=== PATIENT | male | born 1975 | race Asian ===

== ENCOUNTER 2022-05-05 19:50 | Emergency (ER) | payer SELFPAY ==
[~2022-05-05] VITALS: Ht 172.7 cm; Wt 105.0 kg
[2022-05-05 20:06] VITALS: BP 144/87
== END 2022-05-06 08:52 | disposition left against medical advice (07) ==
LOC: ER 19:50
DX: Z53.21 Procedure and treatment not carried out due to patient leaving prior to being seen by health care provider (principal); Z86.16 Personal history of COVID-19